=== PATIENT | female | born 1970 | race Caucasian/White ===

== ENCOUNTER 2017-03-05 09:33 | Emergency (ER) | payer OTHER, BC ==
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
== END 2017-03-05 12:15 | disposition home or self-care (01) ==
LOC: ER 09:33 → EDBD 09:33 → ER 12:15
PROC: 0HQ0XZZ Repair Scalp Skin, External Approach (ICD-10-PCS; principal; 2017-03-05)
DX: S06.0X0A Concussion without loss of consciousness, initial encounter (principal); S00.03XA Contusion of scalp, initial encounter; S70.02XA Contusion of left hip, initial encounter; S70.01XA Contusion of right hip, initial encounter; S40.011A Contusion of right shoulder, initial encounter; Z79.899 Other long term (current) drug therapy; Z23 Encounter for immunization; V49.88XA Car occupant (driver) (passenger) injured in other specified transport accidents, initial encounter